=== PATIENT | female | born 1990 | race Caucasian/White ===

== ENCOUNTER 2022-03-08 10:10 | Outpatient (CLI) | payer OTHER, SELFPAY ==
[2022-03-08 14:39] LABS: Hepatitis B Surface Antigen* Negative (Negative)
[2022-03-08 14:51] LABS: HIV 1/2/P24 Combo Screen* Negative (Negative)
[2022-03-08 14:57] LABS: Hepatitis C Virus Antibody* Negative (Negative)
[2022-03-08 15:37] LABS: Chlamydia DNA Amplified* NOT DETECTED (No Detected); GC DNA Amplified* NOT DETECTED (No Detected)
[2022-03-08 16:42] LABS: Free T4 Free Thyroxine* 0.77 ng/dL (0.70-1.85)
[2022-03-10 04:11] LABS: Rubella Antibody IgG 52.6 IU/mL
[2022-03-10 12:47] LABS: Rapid Plasma Reagin (RPR) Non Reactive (Non Reactive)
== END 2022-03-08 10:11 | disposition home or self-care (01) ==
PROVIDERS: Visit Provider Advanced Practice Midwife
DX: Z34.91 Encounter for supervision of normal pregnancy, unspecified, first trimester (principal)
CPT/HCPCS: 76817; 84439; 84443; 86592; 86703; 86762; 86803; 86850; 86900; 86901; 87086; 87340; 87491; 87591

== ENCOUNTER 2022-04-05 09:06 | Outpatient (CLI) | payer OTHER, SELFPAY ==
[2022-04-05 11:00] LABS: Free T4 Free Thyroxine* 0.82 ng/dL (0.70-1.85)
== END 2022-04-05 09:07 | disposition home or self-care (01) ==
PROVIDERS: Visit Provider Physician Assistant
DX: O99.281 Endocrine, nutritional and metabolic diseases complicating pregnancy, first trimester (principal); E03.1 Congenital hypothyroidism without goiter; Z3A.12 12 weeks gestation of pregnancy
CPT/HCPCS: 84439; 84443

== ENCOUNTER 2022-05-03 15:37 | Outpatient (CLI) | payer OTHER, SELFPAY | END 2022-05-03 15:38 | disposition home or self-care (01) | PROVIDERS: Visit Provider Physician Assistant | DX: E03.9 Hypothyroidism, unspecified (principal) | CPT/HCPCS: 84443 ==

== ENCOUNTER 2022-05-31 09:54 | Outpatient (CLI) | payer OTHER, SELFPAY ==
--- NOTE | 2022-05-31 10:15 | CRLHL7_ITS ---
For Patients: As a result of the Century Cures Act, medical imaging exams and procedure reports are released immediately into your electronic medical record. You may view this report before your referring provider. If you have questions, please contact your health care provider. INDICATION: Evaluate anatomy. COMPARISON: 03.08.22 TECHNIQUE: Real time neal scale imaging of the fetus was performed as well as color Doppler analysis of the umbilical vessels. FINDINGS: Sonographic imaging demonstrates a single living intrauterine gestation. Fetus demonstrates a regular cardiac rate of 159 beats per minute. Fetus has a variable position. The placenta lies right anterior without evidence of placenta previa. The edge of the placenta is located 4.6 cm from the internal cervical os. Amniotic fluid volume appears normal. Single deepest vertical pocket: 4.6 cm. The cervix is closed and measures 4.6 cm in length. The composite ultrasound gestational age is calculated at 21 weeks 0 days with an estimated sonographic due date of 10/11/2022. The estimated weight is 423 grams which lies at the greater than 97th percentile %. The following biometric measurements were obtained: Biparietal diameter: 4.9 cm/20 weeks 5 days 71st% Head circumference: 18.0 cm/20 weeks 3 days 57th% Abdominal circumference: 16.7 cm/21 weeks 5 days 88th% Femur length: 3.6 cm/21 weeks 3 days 84th% The HC/AC ratio measures: 1.08 range (1.06-1.25) On anatomic survey, there is a normal appearance of the cerebral ventricles, cavum septi pellucidi, cisterna magna and cerebellum. The nose, lips, and facial profile appear normal. The cervical, thoracic and lumbar spine are well visualized and appear normal. There is a normal four-chamber heart view and the left and right ventricular outflow tracts appear normal. The diaphragm and stomach appear normal. The kidneys and bladder also appear normal. There is a normal three-vessel cord and cord insertion site. The four extremities appear normal. IMPRESSION: No intrinsic abnormalities noted on anatomic survey. Sonographic gestational age 21 weeks 0 days with a sonographic due date 10/11/2022. Sonographic age is 6 days ahead of the clinical age. Estimated weight greater than 97th percentile. Abdominal circumference 88th percentile. Dictated by David Mtz MD @ 05/31/2022 11:18:06 AM (Electronically Signed)
== END 2022-05-31 09:55 | disposition home or self-care (01) ==
LOC: US 09:55
PROVIDERS: Visit Provider Advanced Practice Midwife
DX: Z34.92 Encounter for supervision of normal pregnancy, unspecified, second trimester (principal); Z3A.20 20 weeks gestation of pregnancy
CPT/HCPCS: 76805

== ENCOUNTER 2022-06-28 16:30 | Outpatient (CLI) | payer OTHER, SELFPAY | END 2022-06-28 16:31 | disposition home or self-care (01) | LOC: NFLDREF 16:31 | PROVIDERS: Visit Provider Advanced Practice Midwife | DX: E03.9 Hypothyroidism, unspecified (principal) | CPT/HCPCS: 84443 ==

== ENCOUNTER 2022-07-26 13:55 | Outpatient (CLI) | payer OTHER, SELFPAY ==
[2022-07-29 07:53] LABS: Rapid Plasma Reagin (RPR) Non Reactive (Non Reactive)
== END 2022-07-26 13:56 | disposition home or self-care (01) ==
PROVIDERS: Visit Provider Advanced Practice Midwife
DX: Z34.82 Encounter for supervision of other normal pregnancy, second trimester (principal); E03.9 Hypothyroidism, unspecified; Z3A.28 28 weeks gestation of pregnancy
CPT/HCPCS: 84443; 86592

== ENCOUNTER 2022-07-30 09:50 | Outpatient (CLI) | payer OTHER, SELFPAY ==
--- NOTE | 2022-07-30 09:45 | CRLHL7_ITS ---
For Patients: As a result of the Century Cures Act, medical imaging exams and procedure reports are released immediately into your electronic medical record. You may view this report before your referring provider. If you have questions, please contact your health care provider. INDICATION: Third trimester scan, evaluate growth. MEASURING LARGE FOR DATES COMPARISON: 05/31/2022 TECHNIQUE: Real time neal scale imaging of the fetus was performed. FINDINGS: Sonographic imaging demonstrates a single living intrauterine gestation. Fetus demonstrates a regular cardiac rate of 139 beats per minute. Fetus has a shani breech position. The placenta lies anteriorly. Amniotic fluid volume appears normal and there is a single deepest vertical pocket: 4.7 cm. The estimated weight is 1654gm which lies at the greater than 97th %. On the prior OB ultrasound exam dated 05/31/2020 through the estimated weight was at the greater than 97th%. BPD 93rd percentile. HC greater than 97th percentile. AC 95th percentile. FL 76th percentile. The HC/AC ratio measures 1.09 range (0.96-1.17). IMPRESSION: Sonographic gestational age 31 weeks 1 day and sonographic due date 09/30/2022. Sonographic age is 17 days ahead of the clinical age. Estimated weight greater than 97th percentile. Abdominal circumference 95th percentile. Head circumference greater than 97th percentile. Dictated by David Mtz MD @ 07/30/2022 10:48:57 AM (Electronically Signed)
== END 2022-07-30 09:51 | disposition home or self-care (01) ==
LOC: US 09:51
PROVIDERS: Visit Provider Physician Assistant
DX: O36.63X0 Maternal care for excessive fetal growth, third trimester, not applicable or unspecified (principal); Z3A.28 28 weeks gestation of pregnancy
CPT/HCPCS: 76816; 82951; 82952

== ENCOUNTER 2022-09-19 12:51 | Outpatient (CLI) | payer OTHER, SELFPAY ==
--- NOTE | 2022-09-19 13:00 | CRLHL7_ITS ---
For Patients: As a result of the Century Cures Act, medical imaging exams and procedure reports are released immediately into your electronic medical record. You may view this report before your referring provider. If you have questions, please contact your health care provider. INDICATION: Third trimester scan, evaluate growth. Gestational diabetes. COMPARISON: 07/30/2022 TECHNIQUE: Real time neal scale imaging of the fetus was performed. FINDINGS: Sonographic imaging demonstrates a single living intrauterine gestation. Fetus demonstrates a regular cardiac rate of 144 beats per minute. Fetus has a vertex position. The placenta lies anteriorly. Amniotic fluid volume appears normal and there is a single deepest vertical pocket: 4.8 cm. The estimated weight is 3243gm which lies at the 89th %. On the prior OB ultrasound exam dated 07/30/2022 the estimated weight was at the greater than 97th%. BPD 72nd percentile. HC 72nd percentile. AC 97th percentile. FL 64th percentile. The HC/AC ratio measures 0.98 range (0.91-1.05). IMPRESSION: Sonographic gestational age 37 weeks 2 days and sonographic due date 10/08/2022. Sonographic age 9 days ahead of the clinical age. Estimated weight 89th percentile. Abdominal circumference 97th percentile. Dictated by David Mtz MD @ 09/19/2022 4:34:00 PM (Electronically Signed)
== END 2022-09-19 12:52 | disposition home or self-care (01) ==
LOC: US 12:52
PROVIDERS: Visit Provider Advanced Practice Midwife
DX: O24.419 Gestational diabetes mellitus in pregnancy, unspecified control (principal); Z3A.37 37 weeks gestation of pregnancy
CPT/HCPCS: 76816

== ENCOUNTER 2022-09-19 15:02 | Outpatient (CLI) | payer OTHER, SELFPAY | END 2022-09-19 15:03 | disposition home or self-care (01) | PROVIDERS: Visit Provider Advanced Practice Midwife | DX: O24.419 Gestational diabetes mellitus in pregnancy, unspecified control (principal); E03.9 Hypothyroidism, unspecified; Z3A.37 37 weeks gestation of pregnancy | CPT/HCPCS: 84443; 87081; 87653 ==

== ENCOUNTER 2022-09-24 09:10 | Inpatient (IN) | payer OTHER, SELFPAY ==
[2022-09-24] VITALS (38 sets, daily range): BP systolic 93–143; BP diastolic 44–83; PULSE 76–126; RESP 16–20; TEMP 36.5–36.9; O2SAT 96–100; BMI 41.9
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
[2022-09-24 09:20] LABS: Amnisure Rom* POSITIVE
[2022-09-24] MEDS: LACTATED RINGERS 1000 ML 1,000 ML 125 ML IV ×2 (09:35→21:32)
[2022-09-24] MEDS: AMPICILLIN 2 GM in 0.9 % SODIUM CHLORIDE Mini-bag 100 ML IVPB (09:54)
[2022-09-24 10:34] LABS: SARS PCR* Negative SARS-CoV-2 (Negative)
[2022-09-24 11:07] LABS: Amphetamine Screen Urine Negative (Negative); Barbiturate Screen Urine Negative (Negative); Benzodiazepines Screen Urine Negative (Negative); Cannabinoid Screen Urine Negative (Negative); Cocaine Screen Urine Negative (Negative); Methadone Screen Urine Negative (Negative); Methamphetamines Screen Urine Negative (Negative); Opiate Screen Urine Negative (Negative); Oxycodone Screen Urine Negative (Negative); Phencyclidine Screen Urine Negative (Negative); Tricyclic Antidepressant Urine Negative (Negative)
[2022-09-24 11:35] LABS: Basophils Percent Auto 0.1 % (0.0-3.0); Eosinophils Percent Auto 0.6 % (0.0-7.0); Hematocrit 37.4 % (33.0-51.0); Hemoglobin* 12.8 gm/dL (12.0-16.0); Lymphocytes Percent Auto 10.9 % (20-44); Mean Corpuscular HGB Conc 34 gm/dL (32-36); Mean Corpuscular Hemoglobin 32 pg (26-34); Mean Corpuscular Volume 93 fL (80-100); Monocytes Percent Auto 4.3 % (0.0-11.0); Neutrophils Percent Auto 83.7 % (42.0-72.0); Platelet Count* 244 K/uL (140-440); RDW Coefficient of Variation % 12.8 % (11.5-15.5); Red Blood Count 4.03 m/uL (4.00-5.20); White Blood Count* 13.99 K/uL (4.50-11.00)
[2022-09-24 11:36] LABS: Immature Granulocytes Pct Auto 0.4 %; Slide Review Reflex No
[2022-09-24] MEDS: AMPICILLIN 1 GM in 0.9 % SODIUM CHLORIDE Mini-bag 100 ML IVPB ×3 (13:55→23:18)
[2022-09-24] MEDS: OXYTOCIN 30 unit/500 ML in NS 30 UNIT/500 ML BAG IVPB (18:24)
--- NOTE | 2022-09-24 18:54 | P.OBPN_ITS ---
Subjective Time Seen by Provider: 18:45 Date Seen: 09/24/22 Narrative: Yancy is having very irregular contractions ranging from 2-20 min apart. She is feeling them mostly in her back with some in her lower abdomen. She continues to leak clear fluid. We had reviewed the options for Cytotec and Pitocin earlier. Risks and benefits of both were reviewed. She didn't want to start any interventions at that time as her partner had to go home to get his stuff. She wanted to wait until her came back. She decided when he returned to start Pitocin. The infusion was started around 1830. She is continuing to change positions and did the full labor warm up circuit earlier. Encourage her to cont inue to change positions. She can use morphine and Vistaril if needed to rest. Objective Vital Signs: Last Vital Signs Temp 98.5 F 09/24/22 18:29 Pulse 81 09/24/22 18:29 Resp 16 09/24/22 18:29 BP 130/67 09/24/22 18:29 Pulse Ox 97 09/24/22 09:48 Contractions Monitor mode: External Contraction pattern: Irregular Contraction intensity: Mild Assessment Assessment: early labor Status: Category l Heart Rate Baseline: 130 Nursing Home Variability: Moderate (6-25) Monitor Accelerations: Present Monitor Decelerations: None Plan Plan: Continue with Pitocin infusion and titrate as needed to obtain a good contraction pattern. Continuous monitoring. Continue with GBS prophylaxis. Planning unmedicated but candidate for epidural if desires. Anticipate .
[2022-09-24] MEDS: MORPHINE 10 MG/ML inj IM (19:50)
[2022-09-24] MEDS: hydrOXYzine pamoate 25 MG CAPSULE 100 MG PO (19:51)
[2022-09-24] MEDS: LIDOCAINE 2% (PF) 5 ML VIAL EPIDURAL (22:45)
[2022-09-24] MEDS: ROPIVACAINE 0.2% 100 ml 100 ML 12 MG EPIDURAL (22:46)
--- NOTE | 2022-09-24 22:59 | PM.ANBPRC ---
[facility] Medical History (Updated 09/09/22 @ 17:52 by Urvashi Munoz CNM) Asthma Hyperthyroidism Hypothyroid IBS (irritable colon syndrome) Surgical History (Updated 03/08/22 @ 14:13 by Nenita Reich CNM) History of dilatation and curettage History of placement of ear tubes History of tonsillectomy and adenoidectomy [place] teeth extracted Family History (Updated 03/08/22 @ 14:19 by Nenita Reich CNM) Maternal Grandfather Liver cirrhosis ETOHism Myocardial infarction Maternal Grandmother Healthy adult Paternal Grandfather Coronary artery disease involving coronary bypass graft Crohn disease Diabetes Paternal Grandmother Lung cancer Hypothyroid Diabetes Mother Hypothyroid High blood pressure Father High blood pressure Sister Pre-eclampsia in third trimester Social History (Updated 03/08/22 @ 14:19 by Nenita Reich CNM) Highest level of school completed/degree received: Bachelor's degree Physical activity type: walking How many days of moderate to strenuous exercise, like a brisk walk, did you do in the last 7 days: 2 Smoking Status: Former smoker Non-prescribed substance use: denies use Caffeine: Yes (occasional) Little interest or pleasure in doing things: not at all Feeling down, depressed, or hopeless: not at all Meds Home Medications and Allergies Home Medications Medication Instructions Recorded Confirmed Type L.acid-B.animalis-B.bifidum-B.infantis 1 cap PO Q1D 03/08/22 09/24/22 History 50 billion cell capsule,del rel (Fortify [place] Probiotic) ascorbic acid 1,000 1 ea PO Q1D 03/08/22 09/24/22 History ka-vllmqzdooual-wmtmnlgc powder effervescent pack (Emergen-C) loratadine 10 mg tablet (Allergy 10 mg PO QDAY 03/08/22 09/24/22 History Relief (loratadine)) prenat.vits,petra,jlc-fkmk-nzkpn 1 tab PO QDAY 03/08/22 09/24/22 History aspirin 81 mg capsule 81 mg PO QDAY 05/03/22 09/24/22 History guaifenesin 1,200 mg tablet, 1,200 mg PO Q12H 09/19/22 09/24/22 History extended release 12 hr (Mucinex) Allergies Allergy/AdvReac Type Severity Reaction Status Date / Time Sulfa (Sulfonamide Allergy Intermediate rash Verified 09/24/22 15:12 Antibiotics) Latex, Natural Rubber Allergy Mild itching, Verified 09/24/22 15:12 rash Results Labs Labs: Laboratory Results - last 24 hr 09/24/22 09/24/22 09/24/22 08:25 08:25 08:48 WBC 13.99 H RBC 4.03 Hgb 12.8 Hct 37.4 MCV 93 MCH 32 MCHC 34 RDW Coeff of Neena 12.8 Plt Count 244 Neut % (Auto) 83.7 H Lymph % (Auto) 10.9 L [place] % (Auto) 4.3 Eos % (Auto) 0.6 Baso % (Auto) 0.1 Neut # (Auto) 11.70 H Lymph # (Auto) 1.50 [place] # (Auto) 0.60 Eos # (Auto) 0.10 Baso # (Auto) 0.00 Membrane Rupture POSITIVE Urine Opiates Screen Ur Oxycodone Screen Urine Methadone Screen Ur Propoxyphene Screen Ur Barbiturates Screen U Tricyclic Antidepress Ur Phencyclidine Scrn Ur Amphetamines Screen U Methamphetamines Scrn U Benzodiazepines Scrn Urine Cocaine Screen U Marijuana (THC) Screen SARS-CoV-2 (PCR) Blood Type B Positive Antibody Screen NEGATIVE 09/24/22 09/24/22 09:08 10:50 WBC RBC Hgb Hct MCV MCH MCHC RDW Coeff of Neena Plt Count Neut % (Auto) Lymph % (Auto) [place] % (Auto) Eos % (Auto) Baso % (Auto) Neut # (Auto) Lymph # (Auto) [place] # (Auto) Eos # (Auto) Baso # (Auto) Membrane Rupture Urine Opiates Screen Negative Ur Oxycodone Screen Negative Urine Methadone Screen Negative Ur Propoxyphene Screen Negative Ur Barbiturates Screen Negative U Tricyclic Antidepress Negative Ur Phencyclidine Scrn Negative Ur Amphetamines Screen Negative U Methamphetamines Scrn Negative U Benzodiazepines Scrn Negative Urine Cocaine Screen Negative U Marijuana (THC) Screen Negative SARS-CoV-2 (PCR) Negative SARS-CoV-2 Blood Type Antibody Screen Vital Signs Vital Signs: Last Vital Signs Temp 97.9 F 09/24/22 22:16 Pulse 105 H 09/24/22 22:58 Resp 20 09/24/22 22:16 BP 93/44 L 09/24/22 22:58 Pulse Ox 97 09/24/22 22:51 Weight: 114.305 kg Height: 165.1 cm Anesthesia Procedures Epidural Insertion Patient Location: OB Start Time: :00 Stop Time: :00 Start Date: 09/24/22 Stop Date: 09/24/22 Reason for Block: procedure for pain Patient Position: sitting Performed By: Margy Lee Preanesthetic Checklist: IV checked, risks and benefits discussed, monitors and equipment checked, pre-op evaluation, timeout performed and anesthesia consent Prep: chlorhexidine gluconate Monitoring: blood pressure monitoring, continuous pulse oximetry and heart rate Approach: midline Vertebral Space: lumbar (1-5) Epidural Technique: SOFIE saline Needle Type: Tuohy needle Injection Technique: continuous catheter (continuous catheter) Needle gauge: 17 Needle Length (cm): 10 cm Needle Insertion Depth (cm): 8 Catheter Gauge: 19 Catheter Type: multi-orifice Catheter at skin depth (cm): 15 Test Dose Result: negative and lidocaine 1.5% with epinephrine 1 to 200,000
[2022-09-25] VITALS (36 sets, daily range): BP systolic 95–149; BP diastolic 50–79; PULSE 82–116; RESP 15–20; TEMP 36.4–37; O2SAT 96–97
[2022-09-25] MEDS: LACTATED RINGERS 1000 ML 1,000 ML 125 ML IV ×3 (00:27→08:05)
[2022-09-25] MEDS: AMPICILLIN 1 GM in 0.9 % SODIUM CHLORIDE Mini-bag 100 ML IVPB ×2 (04:12)
--- NOTE | 2022-09-25 06:00 | PM.OBPRCVD ---
Procedure Delivery date: 09/25/22 Procedure Done: Global Procedure Details: Patient is a 31 year-old G2 now P1 admitted on 09/24/22 at 36 Weeks, 5 Days gestation for spontaneous PPROM.? Cervical exam on admission was 1 cm/80 % effaced/-3 station with membranes ruptured with clear fluid and in vertex presentation.? Contractions were every irregular and occasional. She declined feeling most of the contractions.? heart rate demonstrated baseline 130 bpm with moderate variability, + accelerations, - decelerations; a category 1 tracing.? Spontaneous PPROM occurred at 0345 with clear fluid.?Around 12 hours after rupture she was given the option to augment labor. Educated on options of Cytotec or Pitocin. She choose Pitocin which was started around 1830. She became more uncomfortable around 2300 and was found to be 4cm/75%/-2 by RN exam. She then choose to get an epidural for pain management. She was able to rest and progressed to complete. She was able to push effectively. ?? Labor Analgesia:? Epidural ?? Pitocin:? Yes, for augmentation and ? ?? Labor onset:? 2300? ?? Complete:? 0220? ?? Pushing:? 0230? ?? heart tones during second stage were category II. Baseline 140, +accels, variable decelerations.? ?? At 0504 a viable male delivered in vertex MARY presentation over intact perineum via spontaneous vaginal delivery.? was placed on maternal abdomen.? Cord was clamped and cut after a 30 second delay when the cord was cut to bring baby to the warmer for evaluation for lack of crying effort.? Nose and mouth were bulb suctioned.? Infant weight pending.? 8 at 1 minute and 9 at 5 minutes.? Shoulder dystocia: no.? Nuchal cord: no.? ?? Placenta delivered spontaneously and complete at 0516 with a 3 vessel cord.?On evaluation of the placenta it was noted that it was bilobed and there was a marginal insertion of the cord at the junction of the two placental lobes. ?? Mother and infant were stable after delivery.? ?? Lacerations:? 2nd degree perineal repaired with 3.0 Vicryl. There was also bilateral labial lacerations. The right side was small and approximated well. The left side was larger and due to its size, location relative to the labial laceration on the right and it not easily lying neatly closed, it was repaired with 4.0 Vicryl. ? ?? Blood loss: 150 mL.? Blood loss measurement type: QBL? Sponge and needles counts are correct.? Events: Labor < 37 Weeks, GDMA1 and Premature Rupture of Membrane Intrapartal Events: Labor Augmentation Delivery augmentation: pitocin Delivery monitor: external FHT and external uterine Route of delivery: Episiotomy description: None Laceration description: Perineal - 2nd Degree (small labial bilaterally) Delivery repair: Vicryl Estimated blood loss (mL): 150 Anesthesia type: Epidural Disposition: floor [place] Infant Gender: Male presentation: vertex Placental Delivery Description: Spontaneous Cord Description: 3 Vessels OB Vag Delivery Procedures Additional Procedures Laceration Repair: Yes
[2022-09-25] MEDS: IBUPROFEN 600 MG TABLET PO ×3 (07:44→23:37)
[2022-09-25] MEDS: OXYTOCIN 30 unit/500 ML in NS 30 UNIT/500 ML BAG 300 UNIT IVPB (08:05)
[2022-09-25] MEDS: LEVOTHYROXINE 50 MCG TABLET PO (08:27)
[2022-09-25] MEDS: DOCUSATE SODIUM 100 MG CAPSULE PO (10:21)
[2022-09-25] MEDS: ACETAMINOPHEN 500 MG TABLET 1000 MG PO (11:48)
[2022-09-26] MEDS: ACETAMINOPHEN 500 MG TABLET 1000 MG PO ×2 (02:50→21:11)
[2022-09-26 04:40] VITALS: BP 128/82; PULSE 83; RESP 16; TEMP 36.7; O2SAT 98
[2022-09-26] MEDS: LEVOTHYROXINE 50 MCG TABLET PO (04:51)
[2022-09-26 06:10] LABS: Hemoglobin* 10.2 gm/dL (12.0-16.0)
--- NOTE | 2022-09-26 08:16 | PM.OBPNVD1 ---
Documented by User: Rachael Montaño CNM 09/26/22 08:23 OB - PN:Subj Subjective Time Seen by Provider: 08:16 Date Seen: 09/26/22 Interval history: Subjective: Yancy is a 31 y.o. G2 now P1 who was admitted to L & D for PROM. ?She had an uncomplicated NVD. ? Yancy feels well. ?The pain is well controlled with current medications. ?She has no new complaints. ?She is breast feeding, supplementing with donor milk and pumping, and reports things are going well.? the patient has done well.? Vital signs have been stable.? She has remained afebrile.? She has a good appetite and is tolerating a general diet. ?She is voiding without difficulty.? She is passing gas and has had a bowel movement.? She is ambulating and denies any dizziness.? Has a small amount of rubra lochia and no significant clots. Objective: VSS GENERAL APPEARANCE: ?normal affect, alert, no distress MOOD: ?appropriate HEENT: normocephalic, neck supple, full ROM CHEST: ?Symmetrical chest wall movement. ?Normal respiratory effort. ?Clear to auscultation HEART: ?regular rate and rhythm ABDOMEN: ?soft, non-tender. Uterine fundus is firm, 2 below Umbilicus, midline and is appropriate for the stage of recovery. ?Bowel sounds present. PERINEUM: mild edema of the perineum, there is a 2nd degree laceration that is healing well. EXTREMITIES: ?normal and mild edema Patient comments OB post-: no complaints, pain well controlled, tolerating diet and flatus present Platinum status: bottle (donor milk), and doing well Platinum feeding status: other ( breast feeding, supplementing with donor milk and pumping) OB - PN: Obj Exam Physical Exam: Vital signs: Temp Pulse Resp BP Pulse Ox O2 Del Method O2 Flow Rate 98.1 F 83 16 128/82 98 0 09/26/22 04:40 09/26/22 04:40 09/26/22 04:40 09/26/22 04:40 09/26/22 04:40 09/26/22 04:40 09/26/22 04:40 Narrative: Objective: VSS GENERAL APPEARANCE: ?normal affect, alert, no distress MOOD: ?appropriate HEENT: normocephalic, neck supple, full ROM CHEST: ?Symmetrical chest wall movement. ?Normal respiratory effort. ?Clear to auscultation HEART: ?regular rate and rhythm ABDOMEN: ?soft, non-tender. Uterine fundus is firm, 2 below Umbilicus, midline and is appropriate for the stage of recovery. ?Bowel sounds present. PERINEUM: mild edema of the perineum, there is a 2nd degree laceration that is healing well. EXTREMITIES: ?normal and mild edema OB - PN: Obj Data Labs Labs: Laboratory Results - last 24 hr 09/26/22 06:03 Hgb 10.2 L OB - PN: A/P Vaginal Delivery Assessment and Plan (1) state: Status: Acute (2) Lactating mother: Status: Acute (3) Gestational diabetes: Status: Acute Plan Assessment/Plan G 2 P 1 status post uncomplicated NVD. Lactating Mother GDM 1. ?Continue routine cares. 2. ?. ?May see if desired. 3. ?Anticipate discharge home tomorrow 4. 2 hour blood sugar at 48 houts or at pp visit Plan day: 1 Plan: routine care Documented by User: Urvashi Munoz CNM 09/26/22 22:51 OB - PN:Subj Subjective Interval history: Subjective: Yancy is a 31 y.o. G2 now P1 who was admitted to L & D for PROM. ?She had an uncomplicated NVD. ? Yancy feels well. ?The pain is well controlled with current medications. ?She has no new complaints. ?She is breast feeding, supplementing with donor milk and pumping, and reports things are going well.? the patient has done well.? Vital signs have been stable.? She has remained afebrile.? She has a good appetite and is tolerating a general diet. ?She is voiding without difficulty.? She is passing gas and has had a bowel movement.? She is ambulating and denies any dizziness.? Has a small amount of rubra lochia and no significant clots. OB - PN: A/P Vaginal Delivery Assessment and Plan (1) state: Status: Acute (2) Lactating mother: Status: Acute (3) Gestational diabetes: Status: Acute Plan Assessment/Plan G 2 P 1 status post uncomplicated NVD. Lactating Mother GDM 1. ?Continue routine cares. 2. ?. ?May see if desired. 3. ?Anticipate discharge home tomorrow 4. 2 hour blood sugar at 48 hours or at pp visit
[2022-09-26 08:50] VITALS: BP 111/76; PULSE 83; RESP 16; TEMP 36.6; O2SAT 97
[2022-09-26] MEDS: IBUPROFEN 600 MG TABLET PO ×3 (10:33→23:33)
[2022-09-26 17:05] VITALS: BP 121/80; PULSE 101; RESP 16; TEMP 37; O2SAT 98
[2022-09-26] MEDS: DOCUSATE SODIUM 100 MG CAPSULE PO (17:12)
[2022-09-27 00:10] VITALS: BP 120/77; PULSE 101; RESP 18; TEMP 36.8; O2SAT 98
[2022-09-27] MEDS: ACETAMINOPHEN 500 MG TABLET 1000 MG PO (03:10)
--- NOTE | 2022-09-27 07:46 | P.DS_ITS ---
DS: Providers Provider Date Seen: 09/27/22 Date of admission: 09/24/22 09:10 Primary care physician: Not a Local Provider Admitting Clinician: Nenita Reich CNM Attending Physician on discharge: Nenita Reich CNM Date of Discharge: 09/27/22 DS: Diagnosis Discharge Diagnosis (1) Lactating mother: Status: Acute (2) care following vaginal delivery: Status: Acute Exam Narrative: Exam Narrative: GENERAL APPEARANCE:? normal affect, alert, no distress? MOOD:? appropriate? CHEST:? clear to auscultation and percussion? HEART:? regular rate and rhythm? ABDOMEN:? soft, non-tender the uterine fundus is 2 cm Below Umbilicus, Midline and is appropriate for the stage of recovery.? PERINEUM:? mild edema of the perineum, there is a 2nd degree that is healing well.? EXTREMITIES:? normal and no edema? Patient has no complaints? No active bleeding?? Doing well? She is requesting discharge home.? Const: Vital Signs, click to edit/add: Vital Signs - 24 hr 09/26/22 08:50 09/26/22 17:05 09/27/22 00:10 Temperature 97.9 F 98.6 F 98.2 F Pulse Rate [Pulse Oximeter] 83 101 H 101 H Respiratory Rate 16 16 18 Blood Pressure [Le ft Arm] 111/76 121/80 120/77 Pulse Oximetry 97 98 98 Oxygen Delivery Me thod Room Air Room Air Room Air Documenting provider has reviewed patient's vital signs: yes OB - DS: Summary Hospital Course Hospital Course: Patient is a 31year old, G 2 now P 1? admitted on 09/24/22 at 36 Weeks, 5 Days gestation for PROM.? She had an uncomplicated vaginal delivery.? She delivered a viable male infant.? She is breast feeding and supplementing with formula. She reports things are going well.? the patient has done well.? Her pain is well controlled with current medications.? She has no new complaints.? Vitals have been stable. She has remained afebrile. She is voiding without difficulty. She is passing gas and has had a bowel movement. She is ambulating and denies any dizziness. She is planning possibly an IUD for control but is unsure.??? Peripartum Data Infant delivery method: Vaginal Laceration description: Perineal - 2nd Degree Episiotomy description: None complications: none Infant Gender: Male Discharge Plan: Home Status at Discharge Functional status at discharge: independent ambulation Overall status at discharge: patient is progressing back to baseline Time Spent with Patient Time attestation: Total time spent providing and/or coordinating discharge services: Discharge Plan Discharge Disposition: Home, Self-Care Date of Admission: 09/24/22 09:10 Attending Provider on Discharge: Nenita Reich Primary Care Provider: Provider,Not a Local Condition: Stable Anticipated Discharge Date/Time: 09/27/22 10:00 Discharge Medications: New docusate sodium 100 mg Capsule 100 mg PO DAILY Qty: 60 0RF ibuprofen 600 mg Tablet 600 mg PO Q6H PRNQty: 60 0RF Continued Mucinex 1,200 mg tablet extended release 12hr 1,200 mg PO Q12H prenat.vits,petra,zdg-piwo-fmanh Tablet 1 tab PO QDAY Fortify [place] Probiotic 50 billion cell capsule,delayed release(DR/EC) 1 cap PO Q1D Emergen-C 1,000 mg powder effervescent in packet 1 ea PO Q1D loratadine [Allergy Relief (loratadine)] 10 mg tablet 10 mg PO QDAY levothyroxine 50 mcg tablet 50 mcg PO ONCE Qty: 30 3RF Discontinued aspirin 81 mg capsule 81 mg PO QDAY No Action (DME) Test Strips Misc See Rx Instructions .MEDSUPPLY Qty: 100 3RF Rx Instructions: Test blood sugar 4 times daily. (DME) lancets Misc See Rx Instructions .MEDSUPPLY Qty: 100 3RF Rx Instructions: Test blood sugar 4 times daily. (DME) Blood Glucose Meter Misc See Rx Instructions .MEDSUPPLY Qty: 1 0RF Rx Instructions: As directed Discharge Orders: Discharge Order (Routine); Ordered 09/27/22 Ordered By: Nenita Reich Additional Instructions: Discharge instructions were reviewed with the patient including signs and symptoms of infection and home going medications.? Lifting Restrictions: 10 pounds for 6? weeks? ?? Do not drive while taking narcotic pain meds.? Off Work or School for 6 weeks.? ?? Symptoms to report to doctor:? -Bleeding that saturates more than one pad per hour? -Passing clots larger than the size of a golf ball? -Pain not relieved by prescribed medication? -Fever above 100.4 degrees Fahrenheit? -A foul vaginal odor? -Difficulty in emotions, mood and functions? -Thoughts of hurting yourself and/or ? -Painful, reddened area in your breast? -Any drainage, redness or tenderness in your IV/epidural site? -Severe headache that doesn't improve after taking medications? -Changes in vision, including temporary loss of vision, blurred vision, and/or light sensitivity? -Upper abdominal pain (usually under ribs on the right side)? -Decrease in urination or painful, frequent urinating? -Chest pain? -Shortness of breath? -Tenderness or pain with redness and/swelling in the calf(s) of your leg? ?? Follow Up in clinic in 2 and 6 weeks.? ?? consultation services are available to all mothers and babies for the first year after delivery.? To make an appointment, please call [phone].? Discharge Diet: Regular Follow Up Appointments: Provider,Not a Local [Primary Care Provider] - [facility] [Provider Group] Forms: MyHealth Info Instructions
[2022-09-27] MEDS: LEVOTHYROXINE 50 MCG TABLET PO (08:06)
[2022-09-27 08:10] VITALS: BP 114/76; PULSE 83; RESP 16; TEMP 36.6; O2SAT 98
[2022-09-27] MEDS: IBUPROFEN 600 MG TABLET PO (08:14)
[2022-09-27] MEDS: DOCUSATE SODIUM 100 MG CAPSULE PO (08:14)
== END 2022-09-27 12:50 | disposition home or self-care (01) | DRG 807 ==
LOC: OB OUT 09:14 → OB 09-25 09:02
PROVIDERS: Advanced Practice Midwife; Admitting Provider Advanced Practice Midwife; Visit Provider Advanced Practice Midwife
DX: O42.013 Preterm premature rupture of membranes, onset of labor within 24 hours of rupture, third trimester (principal); Z37.0 Single live birth; O36.63X0 Maternal care for excessive fetal growth, third trimester, not applicable or unspecified; O24.420 Gestational diabetes mellitus in childbirth, diet controlled; O99.284 Endocrine, nutritional and metabolic diseases complicating childbirth; E03.9 Hypothyroidism, unspecified; O70.1 Second degree perineal laceration during delivery; O99.824 Streptococcus B carrier state complicating childbirth; Z3A.36 36 weeks gestation of pregnancy
CPT/HCPCS: 01967; 36415; 80306; 82962; 84112; 85018; 85025; 86850; 86900; 86901; 87635; 99213; A9270; J0290; J2270; J2370; J2795; J7120

== ENCOUNTER 2022-10-02 12:32 | Outpatient (CLI) | payer OTHER, SELFPAY ==
--- NOTE | 2022-10-02 13:06 | P.LACCB_ITS ---
Consult Note - Mom Date of Visit Date of visit: 10/02/22 information security consultant: Ashia Groves Visit Code: Visit Patient's Information Phone number: [phone] : 2 Para: 1 Allergies Sulfa (Sulfonamide Antibiotics) Allergy (Intermediate, Verified 09/24/22 15:12) rash Latex, Natural Rubber Allergy (Mild, Verified 09/24/22 15:12) itching, rash Mother's Medical History: Medical History (Updated 09/28/22 @ 00:01 by ) Asthma Gestational diabetes Hyperthyroidism Hypothyroid Delivery Information Delivery type: Vaginal Weeks Gestation: 36.6 Gestational Age: LGA Weight: 3.4 kg Discharge Weight: 3.202 kg Baby's Information Baby's Age at Visit: 7 days Baby's Provider or Clinic: Dr. Ariza Jaundice: Yes (to umbilicus) Reason for Consult Reason for Consult: concern for supply and transfer Past Experience Past Experience: No Current Frequency of Day Feedings: attempts to breastfeed every 2 - 3 hours; baby is very sleepy at night Both Breasts: Yes (attempts) Suck: not aggressive Latch: fairly wide Length of Time: 15 min/side when he's alert Pumping Pumping: Yes (mom tries to pump with every feeding attempt) Quantity Pumped: 5 - 11 ml total Supplementing EMB Supplement: Yes (POC supplement with 25 - 30 ml EBM or formula every 2 - 3 hours) Formula Supplement: Yes Baby Elimination Number of Wet Diapers a Day: about 8 Number of BM a Day: has not had a BM x 2 days; was dark green and seedy Breast/Nipple Condition Breast Information: WNL Engorgement: No Maternal Nipple Condition - Left: Common Nipple Maternal Nipple Condition - Right: Common Nipple Sore Nipples: No Onsite Pre-Feed weight: 3.236 kg Post-Feed weight: 3.24 kg Milk Transferred (mL): 4 Pre-Nursing Left Nipple: Within Normal Limits Pre-Nursing Right Nipple: Within Normal Limits Post-Nursing Right Nipple: Within Normal Limits Assessments/Interventions Assessments/Interventions: Met with mom and this now 7 day old ex- late LGA baby for consult.? Per mom she attempts to nurse him every 2 - 3 hours and when he's alert will nurse for about 15 min/side.? She has a very difficult time getting him to wake up enough overnight to successfully breastfeed.? She's pumping with a Spectra pump after almost every feeding and gets between 5 - 11 ml total.? Breasts are soft, but WNL- symmetrical with rounded lower quadrants and the intramammary distance is < 1.5 inches.? Nipples are a little short but everted and they don't flatten or retract on compression; no damage noted.? Mom reports breast changes in - tender in first trimester, a darkening of the areola, some enlargement.? She reports her sister had difficulty with milk supply when she was . Baby has gained 31 grams daily since his last visit on 09/30/22 and is now 5% below BW at 7 DOL.? He had a significant caput at delivery and his head is still slightly misshapen.? Per POC he prefers turning his head left but he has equal ROM when moving his extremities.? His palate is WNL.? His upper frenulum is thin and there's no blanching of the upper gums when his lip is flanged.? His tongue extends past the gum line and cups around a finger.? There is some canoeing when the tongue moves laterally to the left but not when moving to the right.? His lower frenulum may be a little posterior.? He's jaundiced to his abdomen but TSB = 17.9 on 09/30 which is an improvement from 19.1 on 09/29. Mom latched baby to the right side in the football hold and he appeared to have a wide latch.? He started suckling aggressively but quickly became tired and mom had to work to keep him awake and actively nursing (she does a good job with breast compression).? She switched him to the left where he was even sleepier, then back to the right.? In about a 35 minute feeding he transferred 4 ml. Plan: 1. Continue to offer the breast every 2 - 3 hours, massage the breasts for a minute or so before and work to keep him awake and active while nursing like she did in clinic.? Keep the nursing sessions to 20 - 30 mintutes.? 2. Continue supplementing after every feeding, gradually increase the amount as he shows cues or as the week progresses.? Reviewed a one week baby usually wants between 1 - 2 oz each feeding. 3. Continue to pump after every feeding if possible or at least 6 - 8 times in 24 hours.? Flange size was reviewed when she was inpatient and she's using the 22 mm flange. 4. Could consider a visit to the chiropractor d/t his hx of caput and tendency to turn left; this may help with latch as well (handout given).? Also reviewed he will hopefully get more aggressive at the breast as he continues to increase in weight and as the bili level drops. 5. Instructed POC that if he does not have a BM by 10/04 OR if he begins to feed poorly and seems to be in pain they should contact his doctor. 5. Will f/u for a 2 week WCC and circumcision next week and in for a one month weight check on 10/23/22.? At that visit could suggest galactagogues and/or pediatric dental referral if no/minimal improvement in supply and transfer. Meds Home Medications and Allergies Home Medications Medication Instructions Recorded Confirmed Type L.acid-B.animalis-B.bifidum-B.infantis 1 cap PO Q1D 03/08/22 09/24/22 History 50 billion cell capsule,del rel (Fortify [place] Probiotic) ascorbic acid 1,000 1 ea PO Q1D 03/08/22 09/24/22 History vo-srrurxkssucb-qzkdbgbq powder effervescent pack (Emergen-C) loratadine 10 mg tablet (Allergy 10 mg PO QDAY 03/08/22 09/24/22 History Relief (loratadine)) prenat.vits,petra,tpj-kczt-byapn 1 tab PO QDAY 03/08/22 09/24/22 History guaifenesin 1,200 mg tablet, 1,200 mg PO Q12H 09/19/22 09/24/22 History extended release 12 hr (Mucinex) Allergies Allergy/AdvReac Type Severity Reaction Status Date / Time Sulfa (Sulfonamide Allergy Intermediate rash Verified 09/24/22 15:12 Antibiotics) Latex, Natural Rubber Allergy Mild itching, Verified 09/24/22 15:12 rash
== END 2022-10-02 12:33 | disposition home or self-care (01) ==
LOC: OB LAC 12:34
PROVIDERS: Visit Provider Pediatrics
DX: Z39.1 Encounter for care and examination of lactating mother (principal)
CPT/HCPCS: 99211

== ENCOUNTER 2022-11-04 08:00 | Outpatient (CLI) | payer OTHER, SELFPAY | END 2022-11-04 08:01 | disposition home or self-care (01) | PROVIDERS: Advanced Practice Midwife; PCP Advanced Practice Midwife; Referring Provider Advanced Practice Midwife; Visit Provider Advanced Practice Midwife | DX: Z39.2 Encounter for routine postpartum follow-up (principal); E03.9 Hypothyroidism, unspecified | CPT/HCPCS: 82947; 82950; 84443 ==

== ENCOUNTER 2023-05-22 07:46 | Outpatient (CLI) | payer OTHER, SELFPAY | END 2023-05-22 07:47 | disposition home or self-care (01) | LOC: NFLDREF 05-25 12:47 | PROVIDERS: PCP Advanced Practice Midwife; Visit Provider Advanced Practice Midwife | DX: E03.9 Hypothyroidism, unspecified (principal) | CPT/HCPCS: 84443 ==

== ENCOUNTER 2023-11-25 15:51 | Outpatient (CLI) | payer OTHER, SELFPAY | END 2023-11-25 15:52 | disposition home or self-care (01) | LOC: NFLDREF 15:52 | PROVIDERS: PCP Advanced Practice Midwife; Visit Provider Physician Assistant | DX: E03.9 Hypothyroidism, unspecified (principal) | CPT/HCPCS: 84443 ==

== ENCOUNTER 2024-06-11 13:05 | Outpatient (CLI) | payer OTHER, SELFPAY | END 2024-06-11 13:06 | disposition home or self-care (01) | LOC: NFLDREF 06-13 16:59 | PROVIDERS: PCP Advanced Practice Midwife; Referring Provider Advanced Practice Midwife; Visit Provider Physician Assistant | DX: E03.9 Hypothyroidism, unspecified (principal) | CPT/HCPCS: 84443 ==

== ENCOUNTER 2024-12-06 14:05 | Outpatient (CLI) | payer OTHER, SELFPAY | END 2024-12-06 14:06 | disposition home or self-care (01) | PROVIDERS: PCP Advanced Practice Midwife; Visit Provider Advanced Practice Midwife | DX: E03.9 Hypothyroidism, unspecified (principal); Z13.6 Encounter for screening for cardiovascular disorders | CPT/HCPCS: 80061; 84443 ==